=== PATIENT | female | born 1980 | race Two or more races ===

== ENCOUNTER 2017-12-27 16:05 | Emergency (ER) | payer BC ==
[2017-12-27 16:30] VITALS: BP 125/79
--- NOTE | 2017-12-27 17:00 | UC ---
Cardiac HPI - HPI Summary HPI Summary: 37-year-old woman comes in with a chief complaint of mid thoracic back pain. Started 4-5 days ago when she had a bronchitis-like symptoms with a cough and sputum production. The sputum production is improved and she feels better from the bronchitis however the pain remains. Pain is worse with twisting turning and bending. The pain improves with ibuprofen. No fevers or chills she is not short of breath now that the bronchitis symptoms are gone. Patient has no calf pain and no history of DVT or pulmonary embolus. - History of Current Complaint Chief Complaint: UCBackPain Stated Complaint: BACK PAIN Time Seen by Provider: 12/27/17 16:37 Hx Last Menstrual Period: 12/27/17 Pain Intensity: 8 - Allergy/Home Medications Allergies/Adverse Reactions: Allergies Allergy/AdvReac Type Severity Reaction Status Date / Time No Known Allergies Allergy Verified 12/27/17 16:30 Home Medications: Home Medications Guaifenesin/Dextromethorphan [Mucinex Dm ER 1,200-60 mg Tab] 1 tab PO ONCE PRN 12/27/17 [History Confirmed 12/27/17] PMH/Surg Hx/FS Hx/Imm Hx Previously Healthy: Yes - Surgical History Surgical History: Yes Surgery Procedure, Year, and Place: x3 - Family History Known Family History: Positive: Diabetes - Social History Alcohol Use: None Substance Use Type: None Smoking Status (MU): Never Smoked Tobacco Review of Systems All Other Systems Reviewed And Are Negative: Yes Constitutional: Positive: Negative Skin: Positive: Negative Eyes: Positive: Negative ENT: Positive: Negative Respiratory: Positive: Cough - DRY Cardiovascular: Positive: Chest Pain - SEE HPI Gastrointestinal: Positive: Negative Motor: Positive: Negative Neurovascular: Positive: Negative Musculoskeletal: Positive: Negative. Negative: Calf Tenderness Neurological: Positive: Negative Psychological: Positive: Negative Is Patient Immunocompromised?: No Physical Exam Triage Information Reviewed: Yes Appearance: Well-Appearing, No Pain Distress, Well-Nourished Vital Signs: Initial Vital Signs Temp 98.2 F 12/27/17 16:26 Pulse 66 12/27/17 16:26 Resp 18 12/27/17 16:26 BP 125/79 12/27/17 16:26 Pulse Ox 100 12/27/17 16:26 Vital Signs Reviewed: Yes Eye Exam: Normal Eyes: Positive: Conjunctiva Clear ENT Exam: Normal ENT: Positive: Pharynx normal, TMs normal. Negative: Nasal congestion, Nasal drainage Neck exam: Normal Neck: Positive: Supple Respiratory: Positive: Lungs clear, Normal breath sounds, No respiratory distress, Other: - Mild tenderness to palpation approximately T8. Cardiovascular Exam: Normal Cardiovascular: Positive: RRR Abdomen Description: Negative: CVA Tenderness (R), CVA Tenderness (L) Musculoskeletal Exam: Normal Musculoskeletal: Positive: Strength Intact, ROM Intact, No Edema, Other: - No calf tenderness to palpation Neurological Exam: Normal Neurological: Positive: Alert, Muscle Tone Normal Psychological Exam: Normal Psychological: Positive: Normal Response To Family, Age Appropriate Behavior Skin Exam: Normal - Assessment/Plan Course Of Treatment: Order Information: CHEST PA LAT 2 VWS. Accession Number: [id number]. CPT: 26389. INDICATION: Mid thoracic back pain when coughing. COMPARISON: None. TECHNIQUE: PA and lateral views of the chest were obtained. FINDINGS: The heart and mediastinum are normal in size and contour. The lungs are grossly clear. There is no evidence of large pleural effusion. Visualized bones are normal for the patient's age. There is no radiographic evidence of free air beneath the diaphragm. IMPRESSION: No radiographic evidence of acute cardiopulmonary disease. . <Electronically signed by Wyatt Todd MD in OV> 12/27/17 1171. I discussed the x-ray results with the patient. No sign of pneumonia or pneumothorax on the chest x-ray. The pain started while she had the bronchitis symptoms and the cough. This makes a musculoskeletal or pleuritic cause of the pain most likely. She has no pedal edema or calf tenderness or history of DVT or pulmonary embolus. I discussed the possibility of pulmonary embolus with the patient. At this time we'll treat as a musculoskeletal or pleurisy pain and treat with ibuprofen. Plan is to follow-up with her doctor or get reevaluated here if not improving or worse. - Clinical Impression Provider Diagnoses: THORACIC BACK PAIN Discharge - Sign-Out/Discharge Documenting (check all that apply): Patient Departure All imaging exams completed and their final reports reviewed: Yes - Discharge Plan Condition: Stable Disposition: HOME Patient Education Materials: Back Pain (ED) Referrals: Wilner Jeong MD [Primary Care Provider] - Additional Instructions: FOLLOW UP WITH YOUR DOCTOR IF NOT COMPLETELY IMPROVED. TAKE IBUPROFEN 600MG EVERY 6 HOURS NEEDED. GET RECHECKED FOR ANY WORSENING OF YOUR CONDITION; PAIN, SHORTNESS OF BREATH, YOU FEEL ILL OR QUESTIONS OR CONCERNS. - Billing Disposition and Condition Condition: STABLE Disposition: Home
== END 2017-12-27 17:42 | disposition home or self-care (01) ==
LOC: UCEAST 16:05
DX: M54.6 Pain in thoracic spine (principal)
CPT/HCPCS: 71046; 99211; G0463

== ENCOUNTER → 2018-01-31 00:08 | Emergency (ER) | payer BC ==
[~2018-01-31 00:08] MED LIST: Meclizine TAB* 12.5 MG PO ONE
--- OUTSIDE RECORDS SUMMARY | 2018-01-31 00:13 | XMS REPORT ---
:1980 External Reference #:[id number] Author Organization [facility] Address [address] [place] [address] Phone [phone] Care Team Providers Name Role Phone Edy Florence MD Care Team Information [employer] Unavailable Edy Florence MD Primary Care Physician Unavailable Payers Type Date Identification Numbers Payment Provider Subscriber Commercial Policy Number: [id number] BC/BS Of [employer] Number: [id number] [address] [address] PayID: [id number] [place] [address] Problems Description No Information Family History Date Family Member(s) Problem(s) Comments Onset: (01/19/2018) Father 65 Father Hyperlipidemia Father Hypertension Onset: (01/19/2018) Mother 67 Mother Diabetes Mellitus, II Mother Hypertension Mother Hyperlipidemia Mother Arthritis Onset: (01/19/2018) First Son 13 Onset: (01/19/2018) First Daughter 16 Second Daughter Mutual Disease left eye Onset: (01/19/2018) Second Daughter 11 Onset: (01/19/2018) First Brother 38 First Brother No Current Problems Social History Type Date Description Comments Marital Status . Lives With Spouse Lives With Children Occupation [employer] Cigarette Use Never Smoked Cigarettes ETOH Use Denies alcohol use Smoking Patient has never smoked Recreational Drug Use Denies Drug Use Daily Caffeine Consumes on average 2 cups of tea per day Currently Active Patient is currently sexually active Contraceptive Methods None Dom Violence Screen screening has been done feels safe at home Allergies, Adverse Reactions, Alerts Date Description Reaction Status Severity Comments 01/19/2018 NKDA active Medications Medication Date Status Form Strength Qnty SIG Indications Ordering Provider No Active 01/19/2018 Active Unknown Medications Vital Signs Date Vital Result Comment 01/19/2018 BP Systolic 118 mmHg BP Diastolic 82 mmHg Heart Rate 72 /min Body Temperature 98.1 F Respiratory Rate 16 /min Height 61.5 inches 5'1.50" Weight 157.00 lb BMI (Body Mass Index) 29.2 kg/m2 Results Test Date Test Result H/L Range Note Laboratory test finding 01/19/2018 TSH <pending> 0.5-5.0 Procedures Description No Information Plan of Care 01/19/2018 - Amelia Sexton, NPZ00.00 Encntr for general adult medical exam w/o abnormal findingsComments:Encourage an active and healthy lifestyle with proper eating habits including fruits, vegetables, 6-8 glasses of water a day and monitoring portion size. Recommend 30 minutes of daily physical activityincluding walking, aerobic exercise, sports, yoga or dance. Any activity is better than no activity.Recommend routine eye and dental exams. Encourage 1200 units of calcium and 1000 units of vitamin D daily. Next physical is due in 1-2 years.Z13.220 Encounter for screening for lipoid veufqtrstP37.9 Nontoxic goiter, unspecifiedNew Xrays:Ultrasound Head/Neck Soft TissuesComments:will repeat US since it has been 8 yearsAllNew Medication:No Active MedicationsComments:~B_~U_Medication Management~b_~u_ Patient Understands medications he 's taking? Yes No Are there Barriers to Adherence? Yes No Has the patient been asked about herbal supplements and therapies, and OTC meds? Yes No ~B_~U_Care Plan~b_~u_1. Patient has been queried about patient's goals/preferences and functional/ lifestyle goals at relevant visits. If relevant, describe: na2. Treatment goals as explained to the patient: above3. Are there barriers to meeting treatment goals? Yes No If Yes, please describe:4. Self-Management goals as described to the patient:Yes NoAs always, we strongly encourage a healthy diet and making physical activity a part of your every day life. If you have questions about how or where to start, please contact the office.Follow up: Annual Due: 01/2019 We have two locations, one on [address] and one up on [address]. We frequently offer evening office hours as well as a 24/7 emergency phone service. I strongly suggest signing up for the online portal so you have access to all of your lab results and have online communication between you and your provider right at your fingertips. If you have any questions or concerns feel free to contact our office.
--- NOTE | 2018-01-31 00:36 | ED ---
Dizziness - HPI Summary HPI Summary: This patient is a 37 year old F brought in by ambulance to [facility] accompanied by her with a chief complaint of dizziness since 23:00. Patient reports that she woke up and immediately felt dizzy, room-spinning upon opening her eyes. The patient rates the pain 1/10 in severity. Symptoms aggravated by nothing. Symptoms alleviated by nothing. Patient reports nausea, emesis x1, and diaphoresis. Patient also notes that she has had a cough for the past month. Patient denies any vision changes or taking any medications. - History Of Current Complaint Chief Complaint: EDDizziness Stated Complaint: EYE ISSUE Time Seen by Provider: 01/31/18 00:22 Hx Obtained From: Patient Onset/Duration: Still Present, Suddenly Timing: Constant Severity Initially: Mild Severity Currently: Mild Character: Room Spinning, Dizzy Aggravating Factor(s): Nothing Alleviating Factor(s): Nothing Associated Signs And Symptoms: Positive: Nausea, Vomiting, Diaphoresis. Negative: Visual Changes - Allergies/Home Medications Allergies/Adverse Reactions: Allergies Allergy/AdvReac Type Severity Reaction Status Date / Time No Known Allergies Allergy Verified 01/31/18 00:14 PMH/Surg Hx/FS Hx/Imm Hx Opthamlomology History: Denies: Hx Legally Blind EENT History: Denies: Hx Deafness Neurological History: Denies: Hx Migraine - Surgical History Surgery Procedure, Year, and Place: x3 Infectious Disease History: No Infectious Disease History: Denies: Traveled Outside the [place] in Last 30 Days - Family History Known Family History: Positive: Diabetes - Social History Alcohol Use: None Substance Use Type: Reports: None Hx Tobacco Use: No Smoking Status (MU): Never Smoked Tobacco Review of Systems Positive: Skin Diaphoresis Negative: Blurred Vision Negative: Chest Pain Positive: Cough Positive: Vomiting, Nausea Neurological: Other - dizziness All Other Systems Reviewed And Are Negative: Yes Physical Exam - Summary Physical Exam Summary: Appearance: Well-appearing, Well-nourished, lying in bed comfortably Skin: Warm, dry, no obvious rash Eyes: sclera anicteric, no conjunctival pallor ENT: mucous membranes moist, pharynx appears normal Neck: Supple, nontender Respiratory: Clear to auscultation, no signs of respiratory distress Cardiovascular: Normal S1, S2. No murmurs. Normal distal pulses in tibial and radial bilaterally. Abdomen: Soft, nontender, normal active bowel sounds present Musculoskeletal: Normal, Strength/ROM Intact, Motor function in all 4 extremities is normal and symmetric. There is no rigidity or tremor noted. Neurological: A&Ox3, awake and alert, mentation is normal, speech is fluent and appropriate, Level of consciousness nml. The patient is alert and oriented. Cranial nerves are grossly intact. Peripheral vision is intact to confrontation. There are no gross sensory abnormalities to light touch. There is no truncal or fine motor ataxia. Gait is normal. Nystagmus on leftward gaze. No fine motor or truncal ataxia Psychiatric: affect is normal, does not appear anxious or depressed Triage Information Reviewed: Yes Vital Signs On Initial Exam: Initial Vitals Temp Pulse Resp BP Pulse Ox 97.7 F 64 14 125/85 98 01/31/18 00:11 01/31/18 00:11 01/31/18 00:11 01/31/18 00:11 01/31/18 00:11 Vital Signs Reviewed: Yes Diagnostics - Vital Signs Vital Signs Temp Pulse Resp BP Pulse Ox 01/31/18 00:11 97.7 F 64 14 125/85 98 - Laboratory Lab Statement: Any lab studies that have been ordered have been reviewed, and results considered in the medical decision making process. Dizzy Course/Dx - Course Course Of Treatment: This patient is a 37 year old F brought in by ambulance to [facility] accompanied by her with a chief complaint of dizziness since 23: 00. Patient reports that she woke up and immediately felt dizzy, room-spinning upon opening her eyes. Patient reports nausea, emesis x1, and diaphoresis. Nystagmus on leftward gaze was noted. In the ED course the patient was given Antivert. Patient will be discharged home with follow up from PCP. The patient is agreeable with this plan. - Diagnoses Provider Diagnoses: Benign paroxysmal positional vertigo Discharge - Sign-Out/Discharge Documenting (check all that apply): Patient Departure - Discharge Plan Condition: Stable Disposition: HOME Prescriptions: Meclizine TAB* [Antivert 12.5 TAB*] 25 mg PO TID PRN #20 tab PRN Reason: Dizziness Patient Education Materials: Benign Paroxysmal Positional Vertigo (ED) Referrals: Wilner Jeong MD [Primary Care Provider] - - Billing Disposition and Condition Condition: STABLE Disposition: Home - Attestation Statements Document Initiated by Gustavoibkiran: Yes Documenting Scribe: Ashlyn Greene Provider For Whom Kelly is Documenting (Include Credential): Justice Ledesma MD Scribe Attestation: Ashlyn Willis, scribed for Justice Ledesma MD on 01/31/18 at 0219. Scribe Documentation Reviewed: Yes Provider Attestation: The documentation as recorded by the scribe, Ashlyn Greene accurately reflects the service I personally performed and the decisions made by Justice soto MD Status of Scribe Document: Viewed
[2018-01-31 02:11] VITALS: BP 120/70
== END | disposition home or self-care (01) ==
LOC: ED 00:08
DX: H81.10 Benign paroxysmal vertigo, unspecified ear (principal)
CPT/HCPCS: 99282; A9270-GY

== ENCOUNTER 2018-03-27 16:36 | Emergency (ER) | payer BC ==
[2018-03-27 16:58] VITALS: BP 133/84
--- NOTE | 2018-03-27 17:54 | UC ---
FLU HPI - HPI Summary HPI Summary: started feeling ST 3 days ago, turned into worse ST, and cough, fever and chills over past 2 days taking mucinex to loosen cough - History of Current Complaint Chief Complaint: UCGeneralIllness Stated Complaint: URI Time Seen by Provider: 03/27/18 17:29 Hx Obtained From: Patient Hx Last Menstrual Period: 02/19/18 ?: No - pt verified Onset/Duration: Gradual Onset Severity Currently: Mild Severity Initially: Moderate Pain Intensity: 3 Associated Signs & Symptoms: Positive: Fever, Cough, Sore Throat, Nasal Congestion. Negative: Vomiting, Diarrhea - Allergy/Home Medications Allergies/Adverse Reactions: Allergies Allergy/AdvReac Type Severity Reaction Status Date / Time No Known Allergies Allergy Verified 03/27/18 16:53 PMH/Surg Hx/FS Hx/Imm Hx Previously Healthy: Yes - Surgical History Surgical History: Yes Surgery Procedure, Year, and Place: x3 - Family History Known Family History: Positive: Diabetes - Social History Occupation: Unemployed Lives: With Family Alcohol Use: None Substance Use Type: None Smoking Status (MU): Never Smoked Tobacco Review of Systems All Other Systems Reviewed And Are Negative: Yes Constitutional: Positive: Fever, Chills, Fatigue Skin: Positive: Negative. Negative: Rash ENT: Positive: Sore Throat Respiratory: Positive: Cough Cardiovascular: Positive: Negative Gastrointestinal: Positive: Negative Neurological: Positive: Negative. Negative: Headache Is Patient Immunocompromised?: No Physical Exam Triage Information Reviewed: Yes Appearance: No Pain Distress, Well-Nourished Vital Signs: Initial Vital Signs Temp 99.1 F 03/27/18 16:53 Pulse 87 03/27/18 16:53 Resp 16 03/27/18 16:53 BP 133/84 03/27/18 16:53 Pulse Ox 100 03/27/18 16:53 Vital Signs Reviewed: Yes Eyes: Positive: Conjunctiva Clear ENT: Positive: Pharyngeal erythema, Nasal congestion, TMs normal Neck: Positive: Supple, Nontender, No Lymphadenopathy Respiratory: Positive: Rhonchi, Other: - cough Cardiovascular Exam: Normal Neurological Exam: Normal Skin Exam: Normal Skin: Negative: Rashes Flu Course/Dx - Differential Dx/Diagnosis Differential Diagnosis/HQI/PQRI: Bronchitis, Influenza, Upper Respiratory Infection Provider Diagnosis: Influenza A Discharge - Sign-Out/Discharge Documenting (check all that apply): Patient Departure All imaging exams completed and their final reports reviewed: Yes - Discharge Plan Condition: Stable Disposition: HOME Prescriptions: Oseltamivir CAP* [Tamiflu CAP*] 75 mg PO BID #9 cap Patient Education Materials: Influenza (ED) Referrals: Edy Florence MD [Primary Care Provider] - 2 Days (if no better) Additional Instructions: drink plenty of fluids take Tamiflu as prescribed Tylenol as directed for fever and pain - Billing Disposition and Condition Condition: STABLE Disposition: Home
[2018-03-27 17:55] LABS: Influenza A Molecular POSITIVE (Negative)
[2018-03-27] MEDS ORDERED: Oseltamivir CAP* 75 MG CAP PO ONE (18:00)
== END 2018-03-27 18:17 | disposition home or self-care (01) ==
LOC: UCEAST 16:36
DX: J10.1 Influenza due to other identified influenza virus with other respiratory manifestations (principal)
CPT/HCPCS: 87651; 99212; A9270-GY; G0463